=== PATIENT | male | born 1975 | race American Indian/Alaskan Native ===

== ENCOUNTER 2016-08-27 11:48 | Outpatient (CLI) | payer OTHER ==
[2016-08-27] MEDS ORDERED: PROVENTIL IH ONE (11:59)
== END 2016-08-27 11:49 | disposition home or self-care (01) ==
LOC: PF 11:48
PROVIDERS: ATTEND Internal Medicine
DX: I50.9 Heart failure, unspecified (principal); I10 Essential (primary) hypertension; J45.909 Unspecified asthma, uncomplicated; F32.9 Major depressive disorder, single episode, unspecified
CPT/HCPCS: 94060; 94640

== ENCOUNTER 2016-11-18 07:36 | Emergency (ER) | payer OTHER ==
[2016-11-18] MEDS ORDERED: DUONEB 0.5 MG-3 MG/3 ML SOLN IH ONE (08:17)
[2016-11-18] MEDS ORDERED: NITROSTAT SL PRN (08:17)
[2016-11-18 08:30] LABS: Anion Gap 17 mmol/L; BUN/Creatinine Ratio 10.83; Basophils % (Auto) 0.5 % (0.0-1.8); Blood Urea Nitrogen 13 mg/dL (9-20); Calcium 9.3 mg/dL (8.4-10.2); Carbon Dioxide 28 mmol/L (22-30); Chloride 100.2 mmol/L (98-107); Eosinophils % (Auto) 2.3 % (0.0-4.3); Glucose 147 mg/dL (75-100); Hematocrit 43.5 % (35.5-45.6); Hemoglobin 13.9 gm/dl (11.8-15.2); Mean Corpuscular HGB Conc 32 % (32-34); Mean Corpuscular Hemoglobin 26 pg (28-32); Mean Corpuscular Volume 82 fl (84-94); Platelet Count 384 K/mm3 (140-440); Potassium 3.8 mmol/L (3.6-5.0); Red Blood Count 5.31 M/mm3 (3.65-5.03); Red Cell Distribution Width 15.3 % (13.2-15.2); Sodium 141 mmol/L (137-145); White Blood Count 6.8 K/mm3 (4.5-11.0)
--- NOTE | 2016-11-18 08:55 | XRay Report ---
PORTABLE CHEST INDICATION: Difficulty breathing, chest pain. COMPARISON: 08/07/2013 FINDINGS: Portable, frontal chest radiograph demonstrates stable cardiomediastinal silhouette/possible mild cardiomegaly. Somewhat prominent bronchovascular markings centrally. No pleural effusions or CHF. EKG leads. Intact bones. CONCLUSION: Stable exam, as described. Thank you for the opportunity to participate in this patient's care.
--- NOTE | 2016-11-18 10:38 | Emergency Department Report ---
ED Chest Pain HPI - General Chief Complaint: Chest Pain Stated Complaint: CHEST PAIN Time Seen by Provider: 11/18/16 08:03 Source: patient, RN notes reviewed Mode of arrival: Ambulatory Limitations: No Limitations - History of Present Illness Initial Comments: 41-year-old male presents to the emergency department complaining of chest pain. Patient reports the onset of squeezing pain to his left chest proximally 90 minutes prior to arrival in the emergency department. He denies radiation of the pain. He reports associated difficulty breathing, nausea, vomiting, and diaphoresis. Pain has been constant since onset but is waxing and waning in intensity. Patient reports a history of asthma and CHF and states when either of these acts up he gets this way. There are no other complaints. MD Complaint: chest pain -: Sudden, This morning Onset: during rest Pain Location: left chest Pain Radiation: none Severity: severe Severity scale (0 -10): 10 Quality: squeezing Consistency: constant Improves With: nothing Worsens With: nothing re: nausea, vomting, diaphoresis, dyspnea Treatments Prior to Arrival: none Aspirin use within the Past 7 Days: (0) No - Related Data Home Medications Medication Instructions Recorded Confirmed Last Taken Albuterol Sulfate [Proventil HFA] 2 puff IH Q4H PRN 08/07/13 11/18/16 08/07/13 08:00 Atorvastatin Calcium [Lipitor] 20 mg PO QHS 11/18/16 11/18/16 11/18/16 Bupropion HCl [Wellbutrin XL] 300 mg PO QAM 11/18/16 11/18/16 11/18/16 Carvedilol [Coreg] 25 mg PO BID 11/18/16 11/18/16 11/18/16 Furosemide [Lasix TAB] 40 mg PO BID 11/18/16 11/18/16 11/17/16 Isosorbide Dinitrate [Isordil 20 mg PO TID 11/18/16 11/18/16 11/18/16 Titradose] Mirtazapine [Remeron] 30 mg PO DAILY 11/18/16 11/18/16 11/18/16 NIFEdipine [Nifedipine ER] 60 mg PO DAILY 11/18/16 11/18/16 11/18/16 Potassium Chloride [K-Dur] 10 meq PO BID 11/18/16 11/18/16 11/18/16 Spironolactone [Aldactone] 25 mg PO QDAY 11/18/16 11/18/16 11/18/16 hydrALAZINE [Apresoline TAB] 10 mg PO Q8H 11/18/16 11/18/16 11/18/16 Previous Rx's Medication Instructions Recorded Last Taken Type predniSONE [Deltasone] 3 tab PO QDAY #15 tab 11/18/16 Unknown Rx Allergies Allergy/AdvReac Type Severity Reaction Status Date / Time lisinopril AdvReac Swelling Unverified 08/27/16 11:50 LINDEN score - Linden Score Age > 65: (0) No Aspirin use within the Past 7 Days: (0) No 3 or more CAD Risk Factors: (1) Yes 2 or more Angina events in past 24 hrs: (0) No Known CAD with more than 50% Stenosis: (0) No Elevated Cardiac Markers: (0) No ST Deviation Greater than 0.5mm: (0) No LINDEN Score: 1 ED Review of Systems ROS: Stated complaint: CHEST PAIN Other details as noted in HPI Comment: All other systems reviewed and negative Constitutional: diaphoresis Respiratory: shortness of breath Cardiovascular: chest pain Gastrointestinal: nausea, vomiting ED Past Medical Hx - Past Medical History Previous Medical History?: Yes Hx Hypertension: Yes Hx Congestive Heart Failure: Yes Hx GERD: Yes Hx Asthma: Yes - Surgical History Past Surgical History?: Yes Additional Surgical History: hernia repair - Family History Family history: no significant - Social History Smoking Status: Never Smoker Substance Use Type: None, Prescribed - Medications Home Medications: Home Medications Medication Instructions Recorded Confirmed Last Taken Type Albuterol Sulfate [Proventil HFA] 2 puff IH Q4H PRN 08/07/13 11/18/16 08/07/13 08:00 History Atorvastatin Calcium [Lipitor] 20 mg PO QHS 11/18/16 11/18/16 11/18/16 History Bupropion HCl [Wellbutrin XL] 300 mg PO QAM 11/18/16 11/18/16 11/18/16 History Carvedilol [Coreg] 25 mg PO BID 11/18/16 11/18/16 11/18/16 History Furosemide [Lasix TAB] 40 mg PO BID 11/18/16 11/18/16 11/17/16 History Isosorbide Dinitrate [Isordil 20 mg PO TID 11/18/16 11/18/16 11/18/16 History Titradose] Mirtazapine [Remeron] 30 mg PO DAILY 11/18/16 11/18/16 11/18/16 History NIFEdipine [Nifedipine ER] 60 mg PO DAILY 11/18/16 11/18/16 11/18/16 History Potassium Chloride [K-Dur] 10 meq PO BID 11/18/16 11/18/16 11/18/16 History Spironolactone [Aldactone] 25 mg PO QDAY 11/18/16 11/18/16 11/18/16 History hydrALAZINE [Apresoline TAB] 10 mg PO Q8H 11/18/16 11/18/16 11/18/16 History predniSONE [Deltasone] 3 tab PO QDAY #15 tab 11/18/16 Unknown Rx ED Physical Exam - General Limitations: No Limitations General appearance: alert, in distress (mild respiratory distress) - Head Head exam: Present: atraumatic, normocephalic - Eye Eye exam: Present: normal appearance, PERRL, EOMI - ENT ENT exam: Present: normal exam, normal orophraynx, mucous membranes moist - Neck Neck exam: Present: normal inspection, full ROM. Absent: tenderness - Respiratory Respiratory exam: Present: respiratory distress (mild tachypnea), decreased breath sounds (bilateral posterior) - Cardiovascular Cardiovascular Exam: Present: regular rate, normal rhythm, normal heart sounds - GI/Abdominal GI/Abdominal exam: Present: soft, normal bowel sounds. Absent: distended, tenderness - Extremities Exam Extremities exam: Present: normal inspection, full ROM. Absent: tenderness, pedal edema - Back Exam Back exam: Present: normal inspection, full ROM. Absent: tenderness - Neurological Exam Neurological exam: Present: alert, oriented X3. Absent: motor sensory deficit - Skin Skin exam: Present: warm, intact, diaphoretic ED Course Vital Signs 11/18/16 11/18/16 11/18/16 07:50 07:53 07:55 Temperature 98.1 F Pulse Rate 88 94 H 88 Pulse Rate [ Anterior Bilateral Throughout] Respiratory 22 21 18 Rate Respiratory Rate [Anterior Bilateral Throughout] Blood Pressure 172/68 O2 Sat by Pulse 100 Oximetry 11/18/16 11/18/16 11/18/16 07:56 07:57 07:59 Temperature Pulse Rate 90 87 87 Pulse Rate [ Anterior Bilateral Throughout] Respiratory 20 19 16 Rate Respiratory Rate [Anterior Bilateral Throughout] Blood Pressure 182/63 182/63 182/63 O2 Sat by Pulse 99 98 100 Oximetry 11/18/16 11/18/16 11/18/16 08:00 08:01 08:03 Temperature Pulse Rate 88 88 86 Pulse Rate [ Anterior Bilateral Throughout] Respiratory 18 20 18 Rate Respiratory Rate [Anterior Bilateral Throughout] Blood Pressure 188/74 188/74 188/74 O2 Sat by Pulse 100 100 100 Oximetry 11/18/16 11/18/16 11/18/16 08:05 08:07 08:09 Temperature Pulse Rate 85 85 86 Pulse Rate [ Anterior Bilateral Throughout] Respiratory 16 12 18 Rate Respiratory Rate [Anterior Bilateral Throughout] Blood Pressure 188/74 188/74 188/74 O2 Sat by Pulse 100 100 100 Oximetry 11/18/16 11/18/16 11/18/16 08:11 08:13 08:15 Temperature Pulse Rate 78 86 81 Pulse Rate [ Anterior Bilateral Throughout] Respiratory 18 12 15 Rate Respiratory Rate [Anterior Bilateral Throughout] Blood Pressure 188/74 188/74 169/65 O2 Sat by Pulse 100 100 100 Oximetry 11/18/16 11/18/16 11/18/16 08:17 08:19 08:20 Temperature Pulse Rate 83 74 87 Pulse Rate [ Anterior Bilateral Throughout] Respiratory 17 16 Rate Respiratory Rate [Anterior Bilateral Throughout] Blood Pressure 169/65 169/65 182/63 O2 Sat by Pulse 100 99 Oximetry 11/18/16 11/18/16 11/18/16 08:21 08:28 08:29 Temperature Pulse Rate 81 Pulse Rate [ 78 77 Anterior Bilateral Throughout] Respiratory 15 Rate Respiratory 18 17 Rate [Anterior Bilateral Throughout] Blood Pressure 169/65 O2 Sat by Pulse 100 Oximetry 11/18/16 11/18/16 11/18/16 08:30 09:00 09:30 Temperature Pulse Rate 72 63 69 Pulse Rate [ Anterior Bilateral Throughout] Respiratory 10 L 15 11 L Rate Respiratory Rate [Anterior Bilateral Throughout] Blood Pressure 166/64 182/68 169/72 O2 Sat by Pulse 97 99 99 Oximetry 11/18/16 11/18/16 11/18/16 10:01 10:31 11:00 Temperature Pulse Rate 66 69 61 Pulse Rate [ Anterior Bilateral Throughout] Respiratory 16 19 18 Rate Respiratory Rate [Anterior Bilateral Throughout] Blood Pressure 179/65 149/48 173/61 O2 Sat by Pulse 98 99 98 Oximetry 11/18/16 11:31 Temperature Pulse Rate 62 Pulse Rate [ Anterior Bilateral Throughout] Respiratory 14 Rate Respiratory Rate [Anterior Bilateral Throughout] Blood Pressure 173/61 O2 Sat by Pulse 96 Oximetry ED Medical Decision Making - Lab Data Result diagrams: 11/18/16 08:00 11/18/16 08:00 - EKG Data -: EKG Interpreted by Me EKG shows normal: sinus rhythm, axis, intervals Rate: normal - EKG Data When compared to previous EKG there are: no significant change Interpretation: unchanged when compared t (03/06/2013), LVH (with repolarization abnormality) - Radiology Data Radiology results: report reviewed Chest x-ray shows mild cardiomegaly, but appears stable compared to previous. There are no other acute cardiopulmonary abnormalities. - Medical Decision Making Lab and imaging report reviewed and discussed with the patient. Patient reports feeling much better following medication. Patient has had a nonischemic ECG and 2 negative troponins. There is no evidence of CHF on clinical exam or on chest x-ray. Patient will be discharged home at this time. - Differential Diagnosis CHF, ACS, asthma Critical care attestation.: If time is entered above; I have spent that time in minutes in the direct care of this critically ill patient, excluding procedure time. ED Disposition Clinical Impression: Asthma exacerbation Disposition: DISCHARGED TO HOME OR SELFCARE Is pt being admited?: No Condition: Stable Instructions: Asthma (ED) Prescriptions: predniSONE [Deltasone] 3 tab PO QDAY #15 tab Referrals: PRIMARY CARE, [Primary Care Provider] - 3-5 Days Time of Disposition: 12:04
[2016-11-18 12:13] VITALS: BP 174/49
== END 2016-11-18 12:14 | disposition home or self-care (01) ==
LOC: ED 07:36
DX: J45.901 Unspecified asthma with (acute) exacerbation (principal); I50.9 Heart failure, unspecified; K21.9 Gastro-esophageal reflux disease without esophagitis
CPT/HCPCS: 36415; 71010; 80048; 83880; 84484; 85025; 93005; 93010; 94640; 99285

== ENCOUNTER 2017-05-09 23:58 | Emergency (ER) | payer MEDICAID, OTHER ==
[2017-05-10] MEDS ORDERED: DELTASONE PO ONE (00:19)
[2017-05-10] MEDS ORDERED: DUONEB *Not for PRN Use IH ONE (00:19)
--- NOTE | 2017-05-10 00:37 | XRay Report ---
FINAL REPORT EXAM: XR CHEST ROUTINE 2V HISTORY: SOB TECHNIQUE: PA and lateral views of the chest were submitted. FINDINGS: The heart size and mediastinum appear normal. There is no evidence of congestion or infiltrate. Pleural fluid is not seen. The skeletal structures appear well maintained. IMPRESSION: No active chest disease.
--- NOTE | 2017-05-10 04:07 | Emergency Department Report ---
Upper Respiratory HPI - HPI Chief Complaint: Adult Asthma Stated Complaint: SOB Time Seen by Provider: 05/10/17 02:27 URI Symptoms: Rhinorrhea: Yes, Sore Throat: Yes, Ear Pain: Yes, Cough: No, Shortness of Breath: Yes, Sick Contacts: No, Unable to Take Fluids: No, Urine Output Abnormal: Yes - Home Meds and Allergies Home Medications: Home Medications Medication Instructions Recorded Confirmed Last Taken Albuterol Sulfate [Proventil HFA] 2 puff IH Q4H PRN 08/07/13 11/18/16 08/07/13 08:00 Atorvastatin Calcium [Lipitor] 20 mg PO QHS 11/18/16 11/18/16 11/18/16 Bupropion HCl [Wellbutrin XL] 300 mg PO QAM 11/18/16 11/18/16 11/18/16 Carvedilol [Coreg] 25 mg PO BID 11/18/16 11/18/16 11/18/16 Furosemide [Lasix TAB] 40 mg PO BID 11/18/16 11/18/16 11/17/16 Isosorbide Dinitrate [Isordil 20 mg PO TID 11/18/16 11/18/16 11/18/16 Titradose] Mirtazapine [Remeron] 30 mg PO DAILY 11/18/16 11/18/16 11/18/16 NIFEdipine [Nifedipine ER] 60 mg PO DAILY 11/18/16 11/18/16 11/18/16 Potassium Chloride [K-Dur] 10 meq PO BID 11/18/16 11/18/16 11/18/16 Spironolactone [Aldactone] 25 mg PO QDAY 11/18/16 11/18/16 11/18/16 hydrALAZINE [Apresoline TAB] 10 mg PO Q8H 11/18/16 11/18/16 11/18/16 Previous Rx's Medication Instructions Recorded Last Taken Type predniSONE [Deltasone] 3 tab PO QDAY #15 tab 11/18/16 Unknown Rx ALBUTEROL NEB's [Proventil 0.083% 2.5 mg IH QID PRN #1 nebu 05/10/17 Unknown Rx NEBS] Azithromycin [Zithromax Z-NOLAN] 250 mg PO DAILY #5 tablet 05/10/17 Unknown Rx Beclomethasone Dipropionate [Qvar] 2 inhalation IH BID #1 unit 05/10/17 Unknown Rx predniSONE [Deltasone] 40 mg PO QDAY #10 tab 05/10/17 Unknown Rx Allergies/Adverse Reactions: Allergies Allergy/AdvReac Type Severity Reaction Status Date / Time lisinopril AdvReac Swelling Unverified 08/27/16 11:50 ED Review of Systems ROS: Stated complaint: SOB Other details as noted in HPI Constitutional: denies: chills, fever Eyes: denies: eye pain, eye discharge, vision change ENT: congestion. denies: ear pain, throat pain Respiratory: cough, shortness of breath. denies: orthopnea, wheezing Cardiovascular: denies: chest pain, palpitations, edema, paroxysmal nocturnal dyspnea Endocrine: no symptoms reported Gastrointestinal: denies: abdominal pain, nausea, vomiting, diarrhea, constipation, hematemesis, melena, hematochezia, other Genitourinary: denies: urgency, dysuria Musculoskeletal: denies: back pain, joint swelling, arthralgia Skin: as per HPI Neurological: denies: headache, weakness, paresthesias Psychiatric: denies: anxiety, depression ED Past Medical Hx - Past Medical History Hx Hypertension: Yes Hx Congestive Heart Failure: Yes Hx GERD: Yes Hx Asthma: Yes - Surgical History Past Surgical History?: Yes Additional Surgical History: hernia repair - Social History Smoking Status: Never Smoker Substance Use Type: None - Medications Home Medications: Home Medications Medication Instructions Recorded Confirmed Last Taken Type Albuterol Sulfate [Proventil HFA] 2 puff IH Q4H PRN 08/07/13 11/18/16 08/07/13 08:00 History Atorvastatin Calcium [Lipitor] 20 mg PO QHS 11/18/16 11/18/16 11/18/16 History Bupropion HCl [Wellbutrin XL] 300 mg PO QAM 11/18/16 11/18/16 11/18/16 History Carvedilol [Coreg] 25 mg PO BID 11/18/16 11/18/16 11/18/16 History Furosemide [Lasix TAB] 40 mg PO BID 11/18/16 11/18/16 11/17/16 History Isosorbide Dinitrate [Isordil 20 mg PO TID 11/18/16 11/18/16 11/18/16 History Titradose] Mirtazapine [Remeron] 30 mg PO DAILY 11/18/16 11/18/16 11/18/16 History NIFEdipine [Nifedipine ER] 60 mg PO DAILY 11/18/16 11/18/16 11/18/16 History Potassium Chloride [K-Dur] 10 meq PO BID 11/18/16 11/18/16 11/18/16 History Spironolactone [Aldactone] 25 mg PO QDAY 11/18/16 11/18/16 11/18/16 History hydrALAZINE [Apresoline TAB] 10 mg PO Q8H 11/18/16 11/18/16 11/18/16 History predniSONE [Deltasone] 3 tab PO QDAY #15 tab 11/18/16 Unknown Rx ALBUTEROL NEB's [Proventil 0.083% 2.5 mg IH QID PRN #1 nebu 05/10/17 Unknown Rx NEBS] Azithromycin [Zithromax Z-NOLAN] 250 mg PO DAILY #5 tablet 05/10/17 Unknown Rx Beclomethasone Dipropionate [Qvar] 2 inhalation IH BID #1 unit 05/10/17 Unknown Rx predniSONE [Deltasone] 40 mg PO QDAY #10 tab 05/10/17 Unknown Rx ED Bronchiolitis Physical Exam - Exam General: Vital signs noted. No distress. Alert and acting appropriately. HEENT: Yes Pharyngeal Erythema, Yes Rhinorrhea, No Conjuctival Injection, No Dry Mucous Membranes Ear: Left EAC Discharge, Neither TM Bulge, Neither TM Erythema Neck: Yes Adenopathy, No Rigidity Lungs: Yes Clear Lung Sounds, Yes Good Air Exchange, Yes Wheezes, Yes Stridor, Yes Cough, No Nasal Flaring, No Retractions, No Use of Accessory Muscles Heart: Yes Regular, No Murmur Abdomen: Yes Tenderness, Yes Peritoneal Signs Skin: No Rash, No Eczema Neurologic: Alert and oriented, no deficits. Musculoskeletal: Unremarkable. ED Physical Exam - General Limitations: No Limitations ED Course Vital Signs 05/10/17 00:14 Temperature 98.6 F Pulse Rate 80 Respiratory 20 Rate Blood Pressure 132/57 [Right] O2 Sat by Pulse 96 Oximetry ED Medical Decision Making - Medical Decision Making pt is a 41 y/o aam who presents for sob x 1 week , pt denies fever or chills pt no u gpt symptoms usully controlled by albuterol inhaler however pt is out ot mediaction for past 2 weeks. pt denies no dizziness no light headedness no n/v , exam: pt appears well nontoxic states cough has improved lungs sound mild exp wheezes bilat, Plan: steriod short burst, zpack , refill albuterol and advair, pt will follow up with primary care doctor in 2 days, pt verbalized agreement and understanding with discharge plan. Critical care attestation.: If time is entered above; I have spent that time in minutes in the direct care of this critically ill patient, excluding procedure time. ED Disposition Clinical Impression: Asthma Qualifiers: Asthma severity: moderate Asthma persistence: unspecified Asthma complication type: with acute exacerbation Qualified Code(s): J45.901 - Unspecified asthma with (acute) exacerbation Disposition: TO HOME OR SELFCARE Is pt being admited?: No Does the pt Need Aspirin: No Condition: Good Instructions: Asthma (ED) Prescriptions: ALBUTEROL NEB's [Proventil 0.083% NEBS] 2.5 mg IH QID PRN #1 nebu PRN Reason: wheezing / SOB Azithromycin [Zithromax Z-NOLAN] 250 mg PO DAILY #5 tablet Beclomethasone Dipropionate [Qvar] 2 inhalation IH BID #1 unit predniSONE [Deltasone] 40 mg PO QDAY #10 tab Referrals: PRIMARY CARE, [Primary Care Provider] - 3-5 Days Forms: AMA Form, Work/School Release Form(ED)
[2017-05-10 04:53] VITALS: BP 154/64
== END 2017-05-10 04:53 | disposition home or self-care (01) ==
LOC: ED 23:58
DX: J45.909 Unspecified asthma, uncomplicated (principal); I11.0 Hypertensive heart disease with heart failure; I50.9 Heart failure, unspecified; K21.9 Gastro-esophageal reflux disease without esophagitis; Z88.8 Allergy status to other drugs, medicaments and biological substances
CPT/HCPCS: 71020; 96374; 99283; J2930; J7512

== ENCOUNTER 2017-07-06 10:58 | Emergency (ER) | payer MEDICAID ==
[2017-07-06 11:19] VITALS: BP 139/52
[2017-07-06 11:41] LABS: Basophils % (Auto) 0.8 % (0.0-1.8); Eosinophils % (Auto) 2.3 % (0.0-4.3); Hematocrit 39.5 % (35.5-45.6); Hemoglobin 12.7 gm/dl (11.8-15.2); Mean Corpuscular HGB Conc 32 % (32-34); Mean Corpuscular Hemoglobin 26 pg (28-32); Mean Corpuscular Volume 81 fl (84-94); Platelet Count 357 K/mm3 (140-440); Red Blood Count 4.86 M/mm3 (3.65-5.03); Red Cell Distribution Width 14.9 % (13.2-15.2); White Blood Count 6.6 K/mm3 (4.5-11.0)
[2017-07-06 11:55] LABS: Anion Gap 18 mmol/L; BUN/Creatinine Ratio 12; Blood Urea Nitrogen 12 mg/dL (9-20); Calcium 8.9 mg/dL (8.4-10.2); Carbon Dioxide 23 mmol/L (22-30); Glucose 97 mg/dL (75-100); Potassium 4.4 mmol/L (3.6-5.0); Sodium 138 mmol/L (137-145)
== END 2017-07-06 13:23 | disposition left against medical advice (07) ==
LOC: ED 10:58
DX: Z53.21 Procedure and treatment not carried out due to patient leaving prior to being seen by health care provider (principal)
CPT/HCPCS: 36415; 80048; 84484; 85025; 93005; 93010